=== PATIENT | male | born 1945 | race Caucasian/White ===

== ENCOUNTER 2017-05-14 08:50 | Emergency (ER) | payer MEDICARE, BC ==
[~2017-05-14] VITALS: Ht 188 cm; Wt 96.0 kg
[~2017-05-14 08:50] MED LIST: ASCO500 PO; ASPI325T PO; ATOR40TA49 PO; COZA50TA PO; DYAZ PO; FISH1000 PO; LEVEMIR SC; METO50TA PO; NOVOLOGP2 SQ; TAB-TAB PO; TRAD5TAB PO; TRIL45CA PO
[2017-05-14 08:53] VITALS: BP 136/60; PULSE 50; RESP 16; TEMP 95.7; O2SAT 100
[2017-05-14 09:10] VITALS: RESP 16; O2SAT 100
[2017-05-14] MEDS ORDERED: SODIUM CHLOR 0.9% 1000 ML INJ 1,000 ML IV SCH (09:15)
[2017-05-14] MEDS ORDERED: SODIUM CHLORIDE 0.9% FLUSH 10 ML FLUSH IVF PRN (09:15)
[2017-05-14] MEDS ORDERED: NOVOLOGP2 SQ (09:20)
[2017-05-14] MEDS ORDERED: LIPI40TA PO (09:20)
[2017-05-14] MEDS ORDERED: FENO1TAB46 PO (09:20)
[2017-05-14] MEDS ORDERED: METO50TA PO (09:20)
[2017-05-14] MEDS ORDERED: DYAZ37.5 PO (09:20)
[2017-05-14] MEDS ORDERED: GLIP5TAB8 PO (09:20)
[2017-05-14] MEDS ORDERED: MULT1TAB46 PO (09:20)
[2017-05-14] MEDS ORDERED: LEVEMIR SQ (09:20)
[2017-05-14] MEDS ORDERED: LOSA50TA PO (09:20)
[2017-05-14] MEDS ORDERED: ASPI325T PO (09:20)
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
[2017-05-14 09:56] VITALS: BP 147/67; PULSE 53; RESP 16; O2SAT 100
[2017-05-14 09:59] LABS: AUTOMATED NEUTROPHIL # 6.4 TH/MM3 (1.8-7.7); BASOPHIL % 0.4 % (0.0-2.0); EOSINOPHIL % 0.6 % (0.0-4.0); HEMO FLAGS DIFF FINAL; LYMPH % 11.2 % (9.0-44.0); LYMPHOCYTE # 0.9 TH/MM3 (1.0-4.8); MEAN CELL VOLUME 85.9 FL (80.0-100.0); MEAN CORPUSCULAR HEMOGLOBIN 29.2 PG (27.0-34.0); MONO % 4.3 % (0.0-8.0); NEUT % 83.5 % (16.0-70.0); PLATELET COUNT 108 TH/MM3 (150-450); RED BLOOD COUNT 3.84 MIL/MM3 (4.50-5.90); RED CELL DISTRIBUTION WIDTH 13.9 % (11.6-17.2); WHITE BLOOD COUNT 7.6 TH/MM3 (4.0-11.0)
[2017-05-14 10:00] VITALS: TEMP 97.9
[2017-05-14 10:04] LABS: BLOOD, URINE NEG (NEG); GLUCOSE,URINE NEG (NEG); KETONE, URINE NEG (NEG); NITRITE,URINE NEG (NEG)
[2017-05-14 10:07] LABS: CHLORIDE 108 MEQ/L (98-107); POTASSIUM 4.1 MEQ/L (3.5-5.1); SODIUM (NA) 140 MEQ/L (136-145)
[2017-05-14 10:09] LABS: COMMENT (UR) CULT NOT INDICATED; CULTURE IF INDICATED CULT NOT INDICATED; METHOD OF COLLECTION CLEAN CATCH; URINE COLOR YELLOW (YELLW/STRAW); WBC, URINE 0-2 /hpf (0-5)
[2017-05-14 10:12] LABS: ANION GAP 10 MEQ/L (5-15); BICARBONATE 22.4 MEQ/L (21.0-32.0); BLOOD UREA NITROGEN 40 MG/DL (7-18); MAGNESIUM 2.3 MG/DL (1.5-2.5)
[2017-05-14 10:14] LABS: AST (GOT) 24 U/L (15-37)
[2017-05-14 10:15] LABS: ALT (GPT) 41 U/L (12-78); BETA-HYDROXYBUTYRATE 0.12 MMOL/L (0.00-0.39); GLOMERULAR FILTRATION RATE 31 ML/MIN (>89)
[2017-05-14 10:16] LABS: TOTAL BILIRUBIN ADULT 0.5 MG/DL (0.2-1.0)
[2017-05-14 10:17] LABS: ALKALINE PHOSPHATASE 45 U/L (45-117)
[2017-05-14 10:30] VITALS: BP 165/77; PULSE 49; RESP 16; O2SAT 98
[2017-05-14 11:00] VITALS: BP 155/70; PULSE 60; RESP 16; O2SAT 98
--- NOTE | 2017-05-14 11:11 | EKG ---
Date Performed: 05/14/2017 Time Performed: 09:21:53 PTAGE: 71 years EKG: SINUS BRADYCARDIA WITH FIRST DEGREE AV BLOCK MODERATE INTRAVENTRICULAR CONDUCTION DELAY Non specific ST and T wave abnormalities ABNORMAL ECG Compared to prior electrocardiogram, rate has decre ased PREVIOUS TRACING : 05/18/2012 20.03 DOCTOR: Kavon Dhillon Interpretating Date/Time 05/14/2017 11:09:48
== END 2017-05-14 11:49 | disposition home or self-care (01) ==
LOC: PHED 08:50
DX: E11.65 Type 2 diabetes mellitus with hyperglycemia (principal); R41.0 Disorientation, unspecified; E78.00 Pure hypercholesterolemia, unspecified; I10 Essential (primary) hypertension; Z79.4 Long term (current) use of insulin; Z86.73 Personal history of transient ischemic attack (TIA), and cerebral infarction without residual deficits; R94.31 Abnormal electrocardiogram [ECG] [EKG]
CPT/HCPCS: 80053; 81001; 82010; 83735; 84484; 85025; 93005; 96360; 99284; J7030